=== PATIENT | male | born 1990 | race Caucasian/White ===

== ENCOUNTER 2020-09-01 18:23 | Emergency (ER) | payer MEDICAID ==
[~2020-09-01] VITALS: Ht 167.6 cm; Wt 226.8 kg
[2020-09-01 18:27] VITALS: Ht 167.6 cm; Wt 226.8 kg
[2020-09-01 19:30] LABS: BASOPHIL % 0.9 % (0.2-1.5); PLATELET COUNT 387 x10^3mcL (152-348)
[2020-09-01 20:01] LABS: AMPHETAMINE QUAL UR NONE DETECTED (See below)
[2020-09-01 20:06] LABS: T3 TOTAL 1.2 ng/mL
[2020-09-01 20:39] LABS: FREE T4 1.06 ng/dL (0.76-1.46); FREE THYROXINE INDEX 2.6 ug/dL (1.4-4.5); T4(THYROXINE) 7.4 ug/dL (4.7-13.3)
[2020-09-01 20:57] LABS: CALCIUM 9.3 mg/dL (8.5-10.1); CARBON DIOXIDE 19.2 mmol/L (21-32); CHLORIDE SERUM 103 mmol/L (98-107); GFR1 > 60 mL/min; GLUCOSE SERUM 111 mg/dL (74-106); POTASSIUM SERUM 4.5 mmol/L (3.5-5.1); SODIUM SERUM 137 mmol/L (136-145)
[2020-09-01 21:02] LABS: ALBUMIN 3.5 g/dL (3.4-5.0); ALKALINE PHOSPHATASE 77 U/L (46-116); ALT/SGPT 51 U/L (16-63); AST/SGOT 28 U/L (15-37); BILIRUBIN TOTAL 0.2 mg/dL (0.20-1.00); CHOLESTEROL 125 mg/dL (<200); CHOLESTEROL/HDL RATIO 2.8; HDL CHOLESTEROL 44 mg/dL (40-60); TOTAL PROTEIN, SERUM 7.8 g/dL (6.4-8.2); TRIGLYCERIDES 113 mg/dL (<150)
[2020-09-01 22:01] VITALS: BP 146/91
== END 2020-09-01 22:10 | disposition home or self-care (01) ==
LOC: ED 18:23
PROVIDERS: Emergency Medicine
DX: I10 Essential (primary) hypertension (principal); K29.00 Acute gastritis without bleeding; E66.01 Morbid (severe) obesity due to excess calories; Z68.45 Body mass index [BMI] 70 or greater, adult
CPT/HCPCS: 83880; 84439

== ENCOUNTER 2020-09-05 06:07 | Emergency (ER) | payer MEDICAID ==
[~2020-09-05] VITALS: Ht 167.6 cm; Wt 229.1 kg
[2020-09-05 06:16] VITALS: Ht 167.6 cm; Wt 229.1 kg
[2020-09-05] MEDS ORDERED: ZESTRIL5 MG PO (06:37)
[2020-09-05] MEDS ORDERED: OMEPRAZOLE40 M1 PO (06:37)
[2020-09-05 06:51] LABS: PLATELET COUNT 369 x10^3mcL (152-348)
[2020-09-05 06:56] LABS: RED CELL DISTRIBUTION WIDTH 14.8 % (12.1-16.2)
[2020-09-05 07:12] LABS: CARBON DIOXIDE 24.9 mmol/L (21-32); CHLORIDE SERUM 101 mmol/L (98-107); CREATININE SERUM 0.9 mg/dL (0.7-1.3); GFR1 > 60 mL/min; GLUCOSE SERUM 102 mg/dL (74-106); POTASSIUM SERUM 4.1 mmol/L (3.5-5.1); SODIUM SERUM 137 mmol/L (136-145)
[2020-09-05 07:16] LABS: ALKALINE PHOSPHATASE 71 U/L (46-116); ALT/SGPT 45 U/L (16-63); AST/SGOT 19 U/L (15-37); BILIRUBIN TOTAL 0.3 mg/dL (0.20-1.00); TOTAL PROTEIN, SERUM 7.3 g/dL (6.4-8.2)
[2020-09-05 07:18] LABS: ALBUMIN 3.2 g/dL (3.4-5.0)
[2020-09-05 08:25] LABS: BAND NEUTROPHIL 4 % (0-10); MONOCYTE 4 % (0-7); SEGMENTED NEUTROPHILS 76 % (37-75)
[2020-09-05 08:26] LABS: PLATELET MORPHOLOGY LARGE PLATELET SEEN; rbc morphology (normal/abnorm) NORMAL (NORMAL)
[2020-09-05 08:50] VITALS: BP 157/80
== END 2020-09-05 08:50 | disposition home or self-care (01) ==
LOC: ED 06:07
PROVIDERS: Emergency Medicine
DX: F41.9 Anxiety disorder, unspecified (principal); E66.01 Morbid (severe) obesity due to excess calories; I10 Essential (primary) hypertension; R10.9 Unspecified abdominal pain
CPT/HCPCS: 83880; 85378